=== PATIENT | female | born 1995 | race Caucasian/White ===

== ENCOUNTER 2021-12-10 16:49 | Inpatient (IN) | payer OTHER ==
[~2021-12-10] VITALS: Ht 160 cm; Wt 58.1 kg
[2021-12-10] MEDS ORDERED: ACTIGALL 300MG300 MG PO (17:34)
[2021-12-10] MEDS ORDERED: PRENATAL VITAM1 EAC3 PO (17:35)
[2021-12-10 17:53] LABS: HEMOGLOBIN 12.9 gm/dl (12.3-15.3); RED BLOOD COUNT 4.11 M/UL (4.00-5.10); WHITE BLOOD COUNT 8.2 K/UL (4.5-11.0)
[2021-12-11] MEDS ORDERED: COLACE 100MG C100 MG PO (16:44)
[2021-12-11] MEDS ORDERED: FERROUS SULFAT325 MG PO (16:44)
[2021-12-11] MEDS ORDERED: IBUPROFEN600 MG PO (16:44)
[2021-12-11] MEDS ORDERED: BUPRENORPHIN-N1 EACH SL (17:34)
[2021-12-12 08:28] LABS: HEMOGLOBIN 11.9 gm/dl (12.3-15.3)
[2021-12-12] MEDS ORDERED: LANSINOH TOP (15:01)
[2021-12-12] MEDS ORDERED: COLACE 100MG C100 MG PO (15:01)
[2021-12-12] MEDS ORDERED: IBUPROFEN600 MG PO (15:01)
[2021-12-12] MEDS ORDERED: BUPRENORPHIN-N1 EACH SL ×2 (15:01→15:04)
[2021-12-12] MEDS ORDERED: FLU VACCINE IM (15:01)
== END 2021-12-13 14:15 | disposition home or self-care (01) | DRG 805 ==
LOC: GENOP 16:49 → OB 17:10
PROVIDERS: Obstetrics & Gynecology; ADMIT Obstetrics & Gynecology
PROC: 10E0XZZ Delivery of Products of Conception, External Approach (ICD-10-PCS; principal; 2021-12-11)
PROC: 10907ZC Drainage of Amniotic Fluid, Therapeutic from Products of Conception, Via Natural or Artificial Opening (ICD-10-PCS; 2021-12-11)
PROC: 3E033VJ Introduction of Other Hormone into Peripheral Vein, Percutaneous Approach (ICD-10-PCS; 2021-12-11)
PROC: 4A1H7CZ Monitoring of Products of Conception, Cardiac Rate, Via Natural or Artificial Opening (ICD-10-PCS; 2021-12-11)
PROC: 10H073Z Insertion of Monitoring Electrode into Products of Conception, Via Natural or Artificial Opening (ICD-10-PCS; 2021-12-11)
PROC: 0HQ9XZZ Repair Perineum Skin, External Approach (ICD-10-PCS; 2021-12-11)
PROC: 10H07YZ Insertion of Other Device into Products of Conception, Via Natural or Artificial Opening (ICD-10-PCS; 2021-12-11)
PROC: 3E0234Z Introduction of Serum, Toxoid and Vaccine into Muscle, Percutaneous Approach (ICD-10-PCS; 2021-12-11)
DX: O26.62 Liver and biliary tract disorders in childbirth (principal); K83.1 Obstruction of bile duct; Z37.0 Single live birth; O99.324 Drug use complicating childbirth; F11.20 Opioid dependence, uncomplicated; O98.42 Viral hepatitis complicating childbirth; Z20.822 Contact with and (suspected) exposure to COVID-19; O70.0 First degree perineal laceration during delivery; B19.20 Unspecified viral hepatitis C without hepatic coma; Z3A.37 37 weeks gestation of pregnancy; Z98.890 Other specified postprocedural states; Z23 Encounter for immunization
CPT/HCPCS: 36415; 80307; 81001; 85014; 85018; 85025; 90715; J2590; J7120; U0002